=== PATIENT | female | born 1965 | race Caucasian/White ===

== ENCOUNTER 2024-02-10 06:20 | Day surgery (SDC) | payer OTHER, SELFPAY ==
[2024-02-03 10:37] LABS: Hematocrit 44.5 % (37.0-47.0); Hemoglobin 14.5 g/dL (12.0-16.0); Mean Corp Hgb Conc. 32.6 g/dL (33.0-37.0); Mean Platelet Volume 10.1 fL (7.4-10.4); Platelet Count 309 10^3/uL (130-400); Red Cell Dist. Width 14.8 % (11.5-14.5); White Blood Cell Count 8.2 10^3/uL (4.8-10.8)
[2024-02-03 11:06] LABS: Blood Urea Nitrogen 15 mg/dl (7-17); Calcium 9.5 mg/dl (8.4-10.2); Carbon Dioxide 28 mmol/L (22-30); Chloride 105 mmol/L (98-107); Glucose 92 mg/dl (70-99); Potassium 4.6 mmol/L (3.5-5.1); Sodium 141 mmol/L (135-145); eGFR > 60.00
[2024-02-03 13:45] VITALS: BMI 37.4
[2024-02-10] VITALS (10 sets, daily range): BP systolic 107–155; BP diastolic 60–133; BMI 37.4
[2024-02-10] MEDS: TYLENOL 1000 MG PO (09:26)
[2024-02-10] MEDS: CELEBREX 200 MG PO (09:26)
[2024-02-10] MEDS: NORMOSOL-R/PLASMALYTE-A 1000 IV (09:41)
[2024-02-10] MEDS: DILAUDID 0.25 MG IV ×2 (13:12→13:27)
== END 2024-02-10 14:55 | disposition home or self-care (01) ==
LOC: SDS 06:20
PROVIDERS: ATTENDING PHYSICIAN Student in an Organized Health Care Education/Training Program; FAMILY PHYSICIAN Nurse Practitioner
DX: M77.31 Calcaneal spur, right foot (principal); M76.61 Achilles tendinitis, right leg
CPT/HCPCS: 27654; 28118; 36415; 80048; 85027; 93005; C1713